=== PATIENT | male | born 1970 | race African-American/Black ===

== ENCOUNTER 2018-08-01 00:54 | Emergency (ER) | payer OTHER ==
[~2018-08-01] VITALS: Ht 188 cm; Wt 72.6 kg
[2018-08-01 01:32] LABS: URINE BILIRUBIN NEGATIVE (Negative); URINE BLOOD 1+ (Negative); URINE CLARITY CLEAR; URINE COLOR YELLOW; URINE GLUCOSE-RANDOM* NEGATIVE (Negative); URINE KETONES TRACE (Negative); URINE LEUKOCYTES-REFLEX TRACE (Negative); URINE NITRITE-REFLEX NEGATIVE (Negative); URINE PROTEIN (DIPSTICK) TRACE (Negative); URINE SPECIFIC GRAVITY >= 1.030 (1.005-1.035); URINE UROBILINOGEN 0.2 E.U./dl (0.2-1.0)
[2018-08-01 01:42] LABS: ABSOLUTE NEUTROPHILS 2.8 thou/uL (1.4-8.2); BASOPHILS 1.8 % (0.0-2.0); HEMATOCRIT 43.6 % (42.0-52.0); HEMOGLOBIN 15.3 gm/dL (14.0-18.0); LYMPHOCYTES 50.1 % (24.0-44.0); MCH 33.2 pg (26.0-34.0); MCHC 35.2 g/dL (28.0-37.0); MCV 94.4 fL (80.0-100.0); MONOCYTES 10.7 % (1.0-8.0); PLATELET COUNT 161 thou/uL (150-400); POLYS 35.4 % (36.0-66.0); RBC 4.62 mil/uL (4.50-6.00); RDW 13.8 % (10.5-14.5); WBC 7.9 thou/uL (4.0-11.0)
[2018-08-01 01:44] LABS: BACTERIA-REFLEX 1-9 Few /HPF (None Seen); CASTS None Seen /LPF (None Seen); CRYSTALS None Seen /LPF (None Seen); MUCUS 0-3 Light strn/LPF (None Seen); SQUAMOUS 0-3 Few /LPF (0-3); URINE RBC 3-10 Few /HPF (0-2); URINE WBC-REFLEX 0-5 Rare /HPF (0-5)
[2018-08-01 01:50] LABS: ANION GAP 10 mmol/L (7-16); BUN 18 mg/dL (7-18); CALCIUM 9.8 mg/dL (8.5-10.1); CHLORIDE 99 mmol/L (98-107); CO2 30 mmol/L (21-32); CREATININE 1.1 mg/dL (0.7-1.3); GLUCOSE 95 mg/dL (74-106); POTASSIUM 3.7 mmol/L (3.5-5.1); SODIUM 139 mmol/L (136-145)
[2018-08-01 02:01] LABS: ALBUMIN 4.2 g/dL (3.4-5.0); LIPASE 51 U/L (73-393); SGOT 18 U/L (15-37); SGPT 35 U/L (30-65); TOTAL BILIRUBIN 0.4 mg/dL (<0.1-1.0); TOTAL PROTEIN 8.4 g/dL (6.4-8.2); TROPONIN-I <0.06 ng/mL (<0.06)
[2018-08-01] MEDS ORDERED: TRAMADOL 50 MG50 MG PO (04:00)
[2018-08-01] MEDS ORDERED: ZOFRAN ODT4 MG DISSOLVE (04:00)
[2018-08-01] MEDS ORDERED: PEPCID20 MG PO (04:00)
[2018-08-01 04:36] VITALS: BP 101/66
--- NOTE | 2018-08-01 08:07 | EKG ---
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1970 Requested By: River Delgado Order Number: [id number] MD: Scott Fontana Measurements Intervals [place] Rate: 73 P: 95 HI: 53 QRS: 70 QRSD: 89 T: 68 QT: 362 QTc: 399 Interpretive Statements Sinus rhythm Poor R wave progression ST elevation suggests early repolarization No previous ECG available for comparison Electronically Signed On 08-01-2018 8:07:33 CDT by Scott Fontana [email or web address] ��������������������������������������������� <ELECTRONICALLY SIGNED> ���������������������������������������� By: Scott Fontana MD, [facility] ��������������������������������������������� 08/01/18 [id number] Scott Fontana MD, FACC /EPI
== END 2018-08-01 04:37 | disposition home or self-care (01) ==
LOC: ER 00:54
PROVIDERS: Emergency Medicine
DX: R07.89 Other chest pain (principal); R10.13 Epigastric pain; R31.9 Hematuria, unspecified; R19.7 Diarrhea, unspecified; R11.10 Vomiting, unspecified; M54.5 Low back pain; G89.29 Other chronic pain; F17.210 Nicotine dependence, cigarettes, uncomplicated; Z87.442 Personal history of urinary calculi